=== PATIENT | female | born 1930 | race Caucasian/White ===

== ENCOUNTER 2016-11-07 08:22 | Emergency (ER) | payer MEDICARE ==
[~2016-11-07] VITALS: Ht 160 cm; Wt 86.0 kg
[~2016-11-07 08:22] MED LIST: ATORVASTATI80 MG/TAB PO; COZAAR100 MG PO; DARVOCET-N 100100 MG OR; DIPHENHYDRAM25 M2 PO; EQ ASPIRIN LOW81 MG PO; FOLIC ACID400 MC1 PO; LASIX20 MG PO; LYRICA50 MG PO; MEDROL DOSEPAK4 MG; METHOTREXATE2.5 MG PO; METOPROL TAR25 MG PO; PERCOCET 5/325M1 TAB PO; PLAVIX75 MG PO; PRAMIPEXOLE0.125 MG PO; PREDNISONE10 MG PO; TRAMADOL HCL50 MG PO
[2016-11-07] MEDS ORDERED: ZPAK PO (09:22)
[2016-11-07 09:45] VITALS: BP 145/63
== END 2016-11-07 09:58 | disposition home or self-care (01) ==
LOC: ED 08:22
DX: H66.91 Otitis media, unspecified, right ear (principal); J02.9 Acute pharyngitis, unspecified; G62.9 Polyneuropathy, unspecified; M06.9 Rheumatoid arthritis, unspecified; I25.10 Atherosclerotic heart disease of native coronary artery without angina pectoris; Z95.5 Presence of coronary angioplasty implant and graft

== ENCOUNTER 2016-12-30 10:28 | Inpatient (IN) | payer MEDICARE ==
[~2016-12-30] VITALS: Ht 160 cm; Wt 84.4 kg
[~2016-12-30 10:28] MED LIST changes: +ZPAK PO
[2016-12-30] MEDS ORDERED: LOSARTAN POT50 MG PO (11:54)
[2016-12-30] MEDS ORDERED: METOPROLOL TART50 MG PO (11:55)
[2016-12-30] MEDS ORDERED: VITAMIN D31000 UNI1 PO (11:56)
[2016-12-30] MEDS ORDERED: MULTIVITAMI9 PO (11:56)
[2016-12-30] MEDS ORDERED: ACIDOPHILUS1 CAP PO (11:57)
[2016-12-30] MEDS ORDERED: PRAVACHOL20 MG PO (11:57)
[2016-12-30] MEDS ORDERED: NITROSTAT0.4 MG SL (11:58)
[2017-01-06] VITALS (8 sets, daily range): BP systolic 115–155; BP diastolic 42–58
[2017-01-06 12:52] LABS: HEMATOCRIT 32.9 % (37.0-47.0); HEMOGLOBIN 10.7 g/dl (12.0-16.0); IMMATURE GRANULOCYTES 0.5 % (0.0-1.0); MEAN CELL VOLUME 92.2 fL CALC (80.0-100.0); MEAN CORPUSCULAR HGB CONC 32.5 g/L CALC (32.0-36.0); NEUT# 3.66 thou/uL (2.00-7.15); RED BLOOD COUNT 3.57 mill/uL (4.20-5.60); RED CELL DISTRI WIDTH 13.7 % (11.5-15.5)
[2017-01-06 13:13] LABS: ALBUMIN 4.2 g/dL (3.2-5.0); BILIRUBIN, TOTAL 0.9 mg/dL (0.0-1.4); CALCIUM 9.5 mg/dL (8.4-10.2); CREATININE 1.1 mg/dL (0.5-1.0); POTASSIUM 4.7 mmol/l (3.5-5.1); TOTAL PROTEIN 7.2 g/dL (6.3-8.2)
[2017-01-07 03:48] VITALS: BP 94/53
[2017-01-07 07:25] LABS: HEMATOCRIT 29.3 % (37.0-47.0); HEMOGLOBIN 9.4 g/dl (12.0-16.0)
[2017-01-07 12:15] VITALS: BP 125/60
[2017-01-07 16:29] VITALS: BP 129/56
[2017-01-07 19:55] VITALS: BP 139/56
[2017-01-07 23:42] VITALS: BP 117/47
[2017-01-08 04:32] VITALS: BP 131/51
[2017-01-08 07:17] LABS: HEMATOCRIT 29.7 % (37.0-47.0); HEMOGLOBIN 9.5 g/dl (12.0-16.0); MEAN CELL VOLUME 94.6 fL CALC (80.0-100.0); MEAN CORPUSCULAR HGB 30.3 pG CALC (26.0-32.0); RED BLOOD COUNT 3.14 mill/uL (4.20-5.60); RED CELL DISTRI WIDTH 14.2 % (11.5-15.5)
[2017-01-08 07:30] LABS: ANION GAP 13 (6-22 (CALC)); BUN 20 mg/dL (8-23); BUN/CREATININE RATIO 21 (12-20 (CALC)); CALCIUM 8.6 mg/dL (8.4-10.2); CARBON DIOXIDE 25 mmol/l (22-30); CHLORIDE 103 mmol/l (95-108); GFR 52 ML/MIN (>=60 (CALC)); GFR FOR AFR.AMER. > 60 ML/MIN (>=60 (CALC)); GLUCOSE 99 mg/dL (82-115); POTASSIUM 4.5 mmol/l (3.5-5.1); SODIUM 137 mmol/l (137-146)
[2017-01-08 08:21] VITALS: BP 117/54
[2017-01-08 08:24] VITALS: BP 117/54
[2017-01-08] MEDS ORDERED: PERCOCET 10/31 COMBO PO (11:45)
== END 2017-01-08 13:56 | DRG 483 ==
LOC: ENPENDDIS → MS2 01-06 09:28
PROVIDERS: Internal Medicine; ADMIT Orthopaedic Surgery; ATTEND Orthopaedic Surgery
PROC: 0RRJ00Z Replacement of Right Shoulder Joint with Reverse Ball and Socket Synthetic Substitute, Open Approach (ICD-10-PCS; principal; 2017-01-06)
PROC: 0LS30ZZ Reposition Right Upper Arm Tendon, Open Approach (ICD-10-PCS; 2017-01-06)
DX: M75.101 Unspecified rotator cuff tear or rupture of right shoulder, not specified as traumatic (principal); G62.9 Polyneuropathy, unspecified; M06.9 Rheumatoid arthritis, unspecified; M19.011 Primary osteoarthritis, right shoulder; S46.111A Strain of muscle, fascia and tendon of long head of biceps, right arm, initial encounter; I25.10 Atherosclerotic heart disease of native coronary artery without angina pectoris; X58.XXXA Exposure to other specified factors, initial encounter
CPT/HCPCS: J2710

== ENCOUNTER 2017-01-12 18:18 | Emergency (ER) | payer MEDICARE ==
[~2017-01-12] VITALS: Ht 160 cm; Wt 95.0 kg
[~2017-01-12 18:18] MED LIST changes: +ACIDOPHILUS1 CAP PO; +LOSARTAN POT50 MG PO; +METOPROLOL TART50 MG PO; +MULTIVITAMI9 PO; +NITROSTAT0.4 MG SL; +PERCOCET 10/31 COMBO PO; +PRAVACHOL20 MG PO; +VITAMIN D31000 UNI1 PO
[2017-01-12 19:51] LABS: HEMATOCRIT 30.3 % (37.0-47.0); HEMOGLOBIN 9.7 g/dl (12.0-16.0); IMMATURE GRANULOCYTES 0.3 % (0.0-1.0); MEAN CELL VOLUME 93.2 fL CALC (80.0-100.0); MEAN CORPUSCULAR HGB 29.8 pG CALC (26.0-32.0); NEUT# 4.3 thou/uL (2.00-7.15); RED BLOOD COUNT 3.25 mill/uL (4.20-5.60); RED CELL DISTRI WIDTH 13.8 % (11.5-15.5)
[2017-01-12 20:05] LABS: ALBUMIN 3.9 g/dL (3.2-5.0); ALKALINE PHOSPHATASE 96 u/l (38-126); ANION GAP 17 (6-22 (CALC)); BILIRUBIN, TOTAL 0.7 mg/dL (0.0-1.4); BUN 30 mg/dL (8-23); BUN/CREATININE RATIO 25 (12-20 (CALC)); CALCIUM 9.2 mg/dL (8.4-10.2); CARBON DIOXIDE 23 mmol/l (22-30); CHLORIDE 104 mmol/l (95-108); CREATININE 1.2 mg/dL (0.5-1.0); GFR 42 ML/MIN (>=60 (CALC)); GFR FOR AFR.AMER. 51 ML/MIN (>=60 (CALC)); GLUCOSE 95 mg/dL (82-115); POTASSIUM 4.8 mmol/l (3.5-5.1); SGOT/AST 39 u/l (9-36); SGPT/ALT 42 u/l (11-66); SODIUM 140 mmol/l (137-146); TOTAL PROTEIN 6.8 g/dL (6.3-8.2)
[2017-01-12 20:16] LABS: MYOGLOBIN 69 ng/mL (0 - 62)
[2017-01-12 21:10] VITALS: BP 142/66
== END 2017-01-12 21:15 | disposition home or self-care (01) ==
LOC: ED 18:18
PROVIDERS: Emergency Medicine
DX: R13.10 Dysphagia, unspecified (principal); I10 Essential (primary) hypertension; Z95.5 Presence of coronary angioplasty implant and graft; Z86.73 Personal history of transient ischemic attack (TIA), and cerebral infarction without residual deficits

== ENCOUNTER 2017-07-28 08:18 | Day surgery (SDC) | payer MEDICARE ==
[2017-07-28] VITALS (14 sets, daily range): BP systolic 113–151; BP diastolic 42–67
[~2017-07-28] VITALS: Ht 162.6 cm; Wt 80.7 kg
[~2017-07-28 08:18] MED LIST changes: +LASIX 20 MG TAB20 MG PO; +LORCET 5-325 MG1 TAB PO; +LYRICA25 MG PO; +TRAMADOL HYDROC50 MG PO
[2017-07-28 09:12] LABS: HEMATOCRIT 32.4 % (37.0-47.0); HEMOGLOBIN 10.4 g/dl (12.0-16.0); IMMATURE GRANULOCYTES 0.2 % (0.0-1.0); MEAN CELL VOLUME 93.1 fL CALC (80.0-100.0); MEAN CORPUSCULAR HGB 29.9 pG CALC (26.0-32.0); MEAN CORPUSCULAR HGB CONC 32.1 g/L CALC (32.0-36.0); NEUT# 2.85 thou/uL (2.00-7.15); RED BLOOD COUNT 3.48 mill/uL (4.20-5.60)
[2017-07-28 09:25] LABS: ALBUMIN 4.4 g/dL (3.2-5.0); BILIRUBIN, TOTAL 0.8 mg/dL (0.0-1.4); CREATININE 1.1 mg/dL (0.5-1.0); POTASSIUM 4.7 mmol/l (3.5-5.1); TOTAL PROTEIN 7.2 g/dL (6.3-8.2)
[2017-07-28 09:29] LABS: ACT PARTIAL THROMBO TIME 26.5 SECONDS (20.0-32.5); PROTHROMBIN TIME 10.6 SECONDS (9.0-12.5)
[2017-07-28] MEDS ORDERED: HYDROCODONE/ACE1 TAB PO (12:50)
--- NOTE | 2017-07-28 15:20 | NUR ---
FROM OR VIA BED ACCOMPANIED BY LACHELLE HOPKINS. RESPS EVEN AND UNLABORED ON ROOM AIR. DRESSING TO RIGHT SHOULDER CDI, RIGHT ARM IN SLING. #20 LFA INFUSING WITHOUT DIFFICULTY, SITE APPEARS HEALTHY. SCD'S TO BILAT LOWER EXTREMITIES. DENIES PAIN OR DISCOMFORT. ORIENTED TO ROOM AND CALL SYSTEM. SAFETY PRECAUTIONS REINFORCED. BED IN LOWEST POSITION WITH WHEELS LOCKED. CALL LIGHT WITHIN REACH. WILL CONTINUE TO MONITOR.
--- NOTE | 2017-07-28 19:33 | NUR ---
BEDSIDE REPORT RECEIVED FROM KELLIE PARKER. PT SITTING UP IN BED LISTENING TO MUSIC; ALERT AND ORIENTED. DENIES PAIN CURRENTLY. RESPIRATIONS EVEN AND UNLABORED ON ROOM AIR. SLING TO RIGHT ARM NOTED TO BE OFF AND REPLACED. PLAN OF CARE DISCUSSED. PT ENCOURAGED TO VERBALIZE CONCERNS. STATES UNDERSTANDING. SAFETY MEASURES IN PLACE. CALL LIGHT WITHIN REACH.
--- NOTE | 2017-07-29 | NUR ---
PT RESTING IN BED WATCHING TV. REQUESTS SOMETHING TO HELP HER SLEEP. DENIES PAIN TO RIGHT SHOULDER. RESPIRATIONS EVEN AND UNLABORED ON ROOM AIR. IV SITE APPEARS HEALTHY; NOW SALINE LOCKED. SCD'S IN PLACE. PT AMBULATES TO THE BATHROOM WITH ONE PERSON ASSIST. CONSISTENT REMINDERS NEEDED FOR PT TO NOT USE RIGHT ARM. SAFETY MEASURES IN PLACE. CALL LIGHT WITHIN REACH.
[2017-07-29 00:55] VITALS: BP 136/65
[2017-07-29 03:55] VITALS: BP 118/60
--- NOTE | 2017-07-29 04:00 | NUR ---
PT RESTING IN BED WITH EYES CLOSED; STATES THAT RESTORIL WAS NOT EFFECTIVE FOR SLEEP. DENIES PAIN. RESPIRATIONS EVEN AND UNLABORED. DRESSING TO RIGHT SHOULDER REMAINS CDI; SLING IN PLACE. IS AT BEDSIDE. SAFETY MEASURES IN PLACE. CALL LIGHT WITHIN REACH.
--- NOTE | 2017-07-29 07:00 | NUR ---
SHIFT CHANGE REPORT FROM SARAH HIGGINS AWAKE ALERT AND ORIENTED SITTING UP IN CHAIR, DENIES PAIN AT THIS TIME, RIGHT ARM IN SLING, REMINDED OF FALL PRECAUTION/PREVENTION AND STATED UNDERSTANDING, CALL PACE IN REACH.
[2017-07-29 08:23] VITALS: BP 100/49
[2017-07-29 10:03] VITALS: BP 135/89
[2017-07-29 10:05] VITALS: BP 138/89
--- NOTE | 2017-07-29 11:15 | NUR ---
Discharge instructions given. Patient verbalizes understanding of same. Discharged in good condition via Wheelchair to Home with family. All belongings sent with pt.
== END 2017-07-29 11:00 | disposition home or self-care (01) ==
LOC: ORM 08:18 → MS2 08:18 → EDSTATUS 13:00 → MS2 14:05 → ORM 07-29 11:00 → MS2 07-29 11:00
PROVIDERS: ATTEND Orthopaedic Surgery
PROC: 0R9J0ZZ Drainage of Right Shoulder Joint, Open Approach (ICD-10-PCS; principal; 2017-07-28)
PROC: 0RNJ0ZZ Release Right Shoulder Joint, Open Approach (ICD-10-PCS; 2017-07-28)
DX: M25.011 Hemarthrosis, right shoulder (principal); S46.811A Strain of other muscles, fascia and tendons at shoulder and upper arm level, right arm, initial encounter; S42.121A Displaced fracture of acromial process, right shoulder, initial encounter for closed fracture; I25.10 Atherosclerotic heart disease of native coronary artery without angina pectoris; F17.200 Nicotine dependence, unspecified, uncomplicated; M06.9 Rheumatoid arthritis, unspecified; G62.9 Polyneuropathy, unspecified; W19.XXXA Unspecified fall, initial encounter; Z96.611 Presence of right artificial shoulder joint; Z79.82 Long term (current) use of aspirin; Z79.02 Long term (current) use of antithrombotics/antiplatelets
CPT/HCPCS: J1100

== ENCOUNTER 2017-08-01 18:08 | Emergency (ER) | payer MEDICARE ==
[~2017-08-01] VITALS: Ht 162.6 cm; Wt 80.0 kg
[~2017-08-01 18:08] MED LIST changes: +HYDROCODONE/ACE1 TAB PO
[2017-08-01 19:15] VITALS: BP 158/65
== END 2017-08-01 20:45 | disposition home or self-care (01) ==
LOC: ED 18:08
DX: M96.830 Postprocedural hemorrhage of a musculoskeletal structure following a musculoskeletal system procedure (principal)

== ENCOUNTER 2017-08-03 10:33 | Observation (INO) | payer MEDICARE ==
[~2017-08-03] VITALS: Ht 162.6 cm; Wt 81.6 kg
--- NOTE | 2017-08-03 10:43 | NUR ---
PT TAKEN TO ER ROOM 13 BY EMS.
--- NOTE | 2017-08-03 11:11 | NUR ---
TOOK PT OFF BEDPAN. READJUSTED IN BED. JACINTA LABS FROM EMS IV. SHALINI @ BEDSIDE. PT JOKING & LAUGHING WITH STAFF. PT DENIES PAIN, TAKES TRAMADOL FOR CHRONIC PAIN.
[2017-08-03 11:24] LABS: HEMATOCRIT 29.5 % (37.0-47.0); HEMOGLOBIN 9.3 g/dl (12.0-16.0); IMMATURE GRANULOCYTES 0.5 % (0.0-1.0); MEAN CELL VOLUME 94.6 fL CALC (80.0-100.0); MEAN CORPUSCULAR HGB 29.8 pG CALC (26.0-32.0); MEAN CORPUSCULAR HGB CONC 31.5 g/L CALC (32.0-36.0); NEUT# 5.17 thou/uL (2.00-7.15); RED BLOOD COUNT 3.12 mill/uL (4.20-5.60); RED CELL DISTRI WIDTH 12.9 % (11.5-15.5)
[2017-08-03 11:39] LABS: INTERNATIONAL NORMALIZED RATIO 0.9 RATIO (0.7-1.3); PROTHROMBIN TIME 10.4 SECONDS (9.0-12.5)
--- NOTE | 2017-08-03 11:59 | NUR ---
PRESSURE BANDAGE APPLIED TO SURGICAL SITE.
--- NOTE | 2017-08-03 12:21 | NUR ---
CASE MANAGEMENT CONSULTED FOR DISPO. SHALINI WENT HOME, STATES PT HAS HER PHONE #.
--- NOTE | 2017-08-03 12:49 | NUR ---
PT UP TO BATHROOM W/CANE, ASSISTED.
--- NOTE | 2017-08-03 13:23 | NUR ---
SBAR PRINTED TO FLOOR
--- NOTE | 2017-08-03 14:38 | NUR ---
Admission Note Report Given to: [facility] Transported by: Wheelchair X Stretcher Transported with: X Nurse Transporter X Patent IV [id number] Geriatric Nurse Practitioner
--- NOTE | 2017-08-03 14:40 | NUR ---
PT TO ROOM VIA STRETCHER ACCOMPANIED BY STAFF; AMBULATORY TO BED WITH STAND BY ASSIST AND USE OF CANE; PT A/O X3; DENIES PAIN AT THIS TIME; #[address], NO REDNESS OR EDEMA NOTED; DRSG TO RT SHOULDER CDI; LAREGE BRUISE NOTED TO ANTERIOR CHEST WALL AND RT UPPER ARM; PT ORIENTED TO ROOM AND CALL SYSTEM; CALL PACE WITHIN REACH; WILL CONTINUE TO MONITOR.
--- NOTE | 2017-08-03 14:55 | NUR ---
PT TRANSFERED TO [facility] IN STABLE CONDITION. AIR COMMODORE @ BEDSIDE.
[2017-08-03 15:04] VITALS: BP 162/51
--- NOTE | 2017-08-03 17:52 | NUR ---
PT WITH VISITORS IN ROOM; PLAN OF CARE DISCUSSED
[2017-08-03 19:00] VITALS: BP 153/54
--- NOTE | 2017-08-03 19:30 | NUR ---
PT RESTING IN BED WATCHING TV. PT IS ALERT AND ORIENTED X3. PERRLA.RESP ARE EVEN AND UNLABORED. LUNGS ARE CLEAR. HR REGULAR. PULSES PALPABLE THROUGHOUT. NO EDEMA NOTED. BS ACTIVE. BRUISING NOTED TO CHEST AND RIGHT SHOULDER. #20 LAC SALINE LOCKED. NO REDNESS OR EDEMA NOTED. WILL CONTINUE TO MONITOR
--- NOTE | 2017-08-04 | NUR ---
PT RESTING IN BED WITH EYES CLOSED. RESP ARE EVEN AND UNLABORED. NO DISTRESS NOTED. WILL CONTINUE TO MONITOR
--- NOTE | 2017-08-04 04:01 | NUR ---
PT RESTING IN BED WITH EYES CLOSED. RESP ARE EVEN AND UNLABORED. NO DISTRESS NOTED. WILL CONTINUE TO MONITOR
[2017-08-04 04:17] VITALS: BP 132/52
[2017-08-04 05:54] LABS: HEMATOCRIT 27.6 % (37.0-47.0); HEMOGLOBIN 8.8 g/dl (12.0-16.0); MEAN CELL VOLUME 94.2 fL CALC (80.0-100.0); MEAN CORPUSCULAR HGB CONC 31.9 g/L CALC (32.0-36.0); RED BLOOD COUNT 2.93 mill/uL (4.20-5.60); RED CELL DISTRI WIDTH 12.8 % (11.5-15.5)
[2017-08-04 06:11] LABS: CREATININE 1.2 mg/dL (0.5-1.0); POTASSIUM 4.9 mmol/l (3.5-5.1)
[2017-08-04 07:20] VITALS: BP 154/58
--- NOTE | 2017-08-04 08:00 | NUR ---
PT FINISHING BREAKFAST. ALERT AND ORIENTED X3. UP TO VOID WITH A STEADY GAIT WITH CANE .PT VOIDED 600 CLEAR YELLOW URINE. PT UP TO WASH UP LINENS CHANGED. TOLERATED WELL. ASSESMENT COMPLETED AT THIS TIME. PT NEUROGICALLY INTACT. PERRL. LUNG SOUNDS CLEAR IN ALL YOUNG. RESPIRATION EVEN AND UNLABORED. HEART SOUNDS NORMAL. APICAL PEDAL PULSES STRONG. NO FACIAL DEFICIT. PRESSURE DRESSING INTACT TO RIGHT SHOULDER AND NO DRAINAGE NOTED. BRUISING ON RIGHT SHOULDER. YELLOW AND PURPLE BRUISING ALSO NOTED FROM RIGHT AXILLARY, ACROSS CHEST TO MIDSTERNUM. PT STATED HAVING NO PAIN OR TENDERNESS TO BRUISED AREAS. #20 IN THE LAC. NO REDNESS OR EDEMA NOTED.PT SITTING IN CHAIR. VOICING NO NEW COMPLAINTS.CALL PACE IN PLACE.
--- NOTE | 2017-08-04 08:15 | NUR ---
PT.ASSESSED, LUNG SOUNDS ARE COURSE IN LOWER AND CLEAR IN UPPER LOBES. DRESSING IS CDI. PT.IS ON THE SIDE OF THE BED EATING BREAKFAST AT THIS TIME. V/S ASSESSED AND PT.ENCOURAGED TO CALL IF ANY NEEDS ARISE.
--- NOTE | 2017-08-04 08:57 | NUR ---
PT MEDICATED PER ORDER FOR PAIN. PAIN IN SHOULDER IS A 4 AT THIS TIME. PT BACK IN BED WITH STEADY GAIT. CALL PACE IN REACH. WILL CONTINUE TO MONITOR.BED IN LOWEST POSITION.
[2017-08-04 11:10] VITALS: BP 142/57
--- NOTE | 2017-08-04 13:50 | NUR ---
PT.MEDICATED FOR PAIN REPORTED ON A SCALE OF 6/10. PAIN REPORTED TO BE IN R.SHOULDER
--- NOTE | 2017-08-04 14:50 | NUR ---
IN TO SEE PT. HE REMOVED DRESSING AND DRAINED HEMATOMA FROM INCISION AND REDRESSED AT BEDSIDE. PT.TOLERATED PROCEDURE WELL. INCISION APPEARED HEALTHY AT THIS TIME. DRESSING CDI AT THIS TIME WITH 2LB SAND BAG PLACED ON INCISION BY . PT.IN BED W/CALL LIGHT IN HAND.
[2017-08-04 16:00] VITALS: BP 124/58
--- NOTE | 2017-08-04 18:35 | NUR ---
PT.UPRIGHT IN BED WATCHING TV. SANDBAG IN PLACE ON INCISION TO RIGHT SHOULDER. PT.REPORTS PAIN 5/10, I ENCOURAGED HER TO TAKE SOMETHING FOR PAIN, BUT SHE STATED THAT SHE WANTS TO WAIT UNTIL BEDTIME MEDICAITONS WERE GIVEN. CALL LIGHT IS AT HAND
[2017-08-04 19:20] VITALS: BP 118/50
--- NOTE | 2017-08-04 19:30 | NUR ---
PT RESTING IN BED WATCHING TV. PT IS ALERT AND ORINETED X3. PERRLA. RESP ARE EVEN AND UNLABORED. NO DISTRESS NOTED. LUNGS ARE CLEAR. HR REGULAR. PULSES PALPABLE THROUGHOUT. NO EDEMA NOTED. BS ACTIVE. DRESSING TO RIGHT SHOULDER WITH SANDBAG IN PLACE. PT STATES THE PAIN IS OK AT THIS TIME. #20 LAC. SALINE LOCKED. NO REDNESS OR EDEMA NOTED. WILL CONTINUE TO MONITOR.
--- NOTE | 2017-08-05 04:08 | NUR ---
PT RESTING IN BED WITH EYES CLOSED. RESP ARE EVEN AND UNLABORED. NO DISTRESS NOTED. WILL CONTINUE TO MONITOR
[2017-08-05 04:20] VITALS: BP 133/67
[2017-08-05 06:02] LABS: HEMATOCRIT 27.7 % (37.0-47.0); HEMOGLOBIN 8.8 g/dl (12.0-16.0)
[2017-08-05 06:21] LABS: CREATININE 1.3 mg/dL (0.5-1.0); POTASSIUM 4.4 mmol/l (3.5-5.1)
--- NOTE | 2017-08-05 07:17 | NUR ---
REPORT RECEIVED FROM NIGHT NURSE, PT.IS IN BED W/LIGHTS OUT AND APPEARS TO BE SLEEPING AT THIS TIME. NO S/S OF DITSRESS NOTED. CALL LIGHT IS AT BEDSIDE.
[2017-08-05 07:50] VITALS: BP 113/60
--- NOTE | 2017-08-05 07:55 | NUR ---
PT.MEDICATED ORDERS PROVIDE AND FOR PAIN REPORTED 12/26. PT.IS UPRIGHT IN BED WATCHING TV. NO APPARENT S/S OF DISTRESS. LEFT KNEE DRESSING CDI, LEG ELEVATED. SCD'S ON R.LEG AND IS AT BEDSIDE AND PT.ENCOURAGED TO USE. 50CC OF YELLOW CLEAR URINE EMPTIED FROM URINAL. LUNG SOUNDS CLEAR/DIMINISHED. PT.DENIES ANY OTHER NEEDS AT THIS TIME. CALL LIGHT IN HAND
[2017-08-05 08:54] VITALS: BP 113/60
--- NOTE | 2017-08-05 10:35 | NUR ---
DRESSING CHANGE PER . ABDX2 W/PAPER TAPE APPLIED TO INCISION AREA. NO REDNESS TO INCISION AREA, SOME SWELLING AT SITE.
--- NOTE | 2017-08-05 11:36 | NUR ---
PT.IV REMOVED INTACT/SITE APPEARS HEALTHY. PT.DISCHARGED OFF UNIT FLOOR IN GOOD CONDITION, VIA WHEELCHAIR ACCOMPANIED BY STAFF AND FAMILY.
== END 2017-08-05 11:33 | disposition home health service (06) ==
LOC: ED 10:33 → ED-I 13:07 → ED 14:00 → MS2 14:01
PROVIDERS: Family Medicine; Nurse Practitioner Family; ADMIT Internal Medicine; ATTEND Internal Medicine
PROC: 0H9BXZZ Drainage of Right Upper Arm Skin, External Approach (ICD-10-PCS; principal; 2017-08-04)
DX: L76.32 Postprocedural hematoma of skin and subcutaneous tissue following other procedure (principal); S42.121D Displaced fracture of acromial process, right shoulder, subsequent encounter for fracture with routine healing; I10 Essential (primary) hypertension; I25.10 Atherosclerotic heart disease of native coronary artery without angina pectoris; M06.9 Rheumatoid arthritis, unspecified; G62.9 Polyneuropathy, unspecified; E78.5 Hyperlipidemia, unspecified; D64.9 Anemia, unspecified; G25.81 Restless legs syndrome; W01.198D Fall on same level from slipping, tripping and stumbling with subsequent striking against other object, subsequent encounter; Y83.1 Surgical operation with implant of artificial internal device as the cause of abnormal reaction of the patient, or of later complication, without mention of misadventure at the time of the procedure; Z95.5 Presence of coronary angioplasty implant and graft; Z79.02 Long term (current) use of antithrombotics/antiplatelets; Z96.611 Presence of right artificial shoulder joint

== ENCOUNTER → 2018-03-21 | Outpatient (REF) | payer MEDICARE ==
[2018-03-21 09:38] LABS: HEMATOCRIT 34.5 % (37.0-47.0); HEMOGLOBIN 10.9 g/dl (12.0-16.0); MEAN CELL VOLUME 91.3 fL CALC (80.0-100.0); MEAN CORPUSCULAR HGB 28.8 pG CALC (26.0-32.0); MEAN CORPUSCULAR HGB CONC 31.6 g/L CALC (32.0-36.0); RED BLOOD COUNT 3.78 mill/uL (4.20-5.60); RED CELL DISTRI WIDTH 13.8 % (11.5-15.5)
[2018-03-21 10:02] LABS: ALBUMIN 4.2 g/dL (3.2-5.0); BILIRUBIN, TOTAL 0.7 mg/dL (0.0-1.4); CHOLESTEROL HDL RATIO 2.4 (<4.4 (CALC)); CREATININE 1.1 mg/dL (0.5-1.0); POTASSIUM 4.3 mmol/l (3.5-5.1); TOTAL PROTEIN 7.4 g/dL (6.3-8.2)
== END | disposition home or self-care (01) ==
LOC: LAB 08:42
PROVIDERS: ATTEND Internal Medicine
DX: E78.49 Other hyperlipidemia (principal); G62.9 Polyneuropathy, unspecified; I10 Essential (primary) hypertension; I25.10 Atherosclerotic heart disease of native coronary artery without angina pectoris; I65.21 Occlusion and stenosis of right carotid artery; N18.3 Chronic kidney disease, stage 3 (moderate)